=== PATIENT | male | born 1970 | race Caucasian/White ===

== ENCOUNTER 2022-12-24 10:23 | Emergency (ER) | payer MEDICAID ==
[2022-12-24 10:36] VITALS: BP 173/105
[2022-12-24] MEDS ORDERED: KETOROLAC 60 MG/2 ML VIAL IM STA (11:25)
--- NOTE | 2022-12-24 11:41 | ED Physician Documentation ---
History of Present Illness - Stated complaint Stated Complaint: FOOT PX/RTARM PX - Chief complaint Chief Complaint: General - History obtained from History obtained from: Patient - History of Present Illness Pain level max: 6 Pain level now: 5 - Additonal information Additional information: Patient is a 52-year-old male who presents to the emergency department complaint of bilateral foot pain ongoing for the past several months. Feels like [id number] sensation. He states he has a history of diabetes but stopped taking his diabetic meds a few months ago. He is from [place] and moved here less than 2 days ago. He states he is also having pain in the right shoulder, worse with movement, better with rest. No fevers. No chills. Denies any trauma. Has not taken anything for pain at home. Review of Systems Constitutional: denies: Fever, Chills GI: denies: Nausea, Vomiting, Diarrhea Skin: denies: Rash Musculoskeletal: denies: Neck pain, Back pain PD PAST MEDICAL HISTORY - Past Medical History Past Medical History: Yes Endocrine/Autoimmune: Type 2 diabetes - Present Medications Home Medications: Ambulatory Orders Medication Instructions Recorded Confirmed Gabapentin [Neurontin] 300 mg PO TID #90 cap 12/24/22 Meloxicam [Mobic] 7.5 mg PO BID PRN #20 tablet 12/24/22 - Allergies Allergies/Adverse Reactions: Allergies Allergy/AdvReac Type Severity Reaction Status Date / Time amoxicillin Allergy Hives Verified 12/24/22 10:36 cephalexin [From Keflex] Allergy Hives Verified 12/24/22 10:35 erythromycin base Allergy Hives Verified 12/24/22 10:36 - Living Situation Living Arrangement: reports: At home - Social History Does the pt have substance abuse?: No - Family History Family history: reports: Non contributory PD ED PE NORMAL - Vitals Vital signs reviewed: Yes - General General: Alert and oriented X 3, No acute distress - HEENT HEENT: PERRL, Moist mucous membranes - Neck Neck: Supple, no meningeal sign - Cardiac Cardiac: RRR, Strong equal pulses - Respiratory Respiratory: No respiratory distress, Clear bilaterally - Abdomen Abdomen: Soft, Non tender, Non distended - Derm Derm: Warm and dry - Extremities Extremities: Other (R shoulder - Mild tender to palpation posterior aspect of the glenohumeral joint. Full range of motion, but does have increased pain with external rotation. NVI. o/w normal exam) - Neuro Neuro: Alert and oriented X 3 - Psych Psych: Normal mood, Normal affect - Free text exam Free text exam: Mild decrease sensation over the bilateral feet, mainly in the tips of the toes, there is increased pain over the dorsum of the bilateral feet. No swelling. No skin changes. No wounds. Results - Vitals Vitals: Vital Signs - 24 hr 12/24/22 10:31 Temperature 36.2 C L Heart Rate 84 Respiratory 20 Rate Blood Pressure 173/105 H O2 Saturation 98 Oxygen O2 Source Room air - Labs Labs: Laboratory Tests 12/24/22 12/24/22 12/24/22 10:58 11:39 11:39 WBC 10.4 RBC 4.99 Hgb 14.3 Hct 44.0 MCV 88.2 MCH 28.7 MCHC 32.5 RDW 14.0 Plt Count 263 MPV 10.2 Neut # (Auto) 6.6 Lymph # (Auto) 2.5 [place] # (Auto) 0.7 Eos # (Auto) 0.4 Baso # (Auto) 0.1 Absolute Nucleated RBC 0.00 Nucleated RBC % 0.0 Sodium 138 Potassium 4.0 Chloride 105 Carbon Dioxide 27 Anion Gap 6.0 BUN 16 Creatinine 0.7 Estimated GFR (MDRD) 119 Glucose 119 H POC Whole Bld Glucose 127 H Estimat Average Glucose Hemoglobin A1c % Calcium 8.5 12/24/22 11:39 WBC RBC Hgb Hct MCV MCH MCHC RDW Plt Count MPV Neut # (Auto) Lymph # (Auto) [place] # (Auto) Eos # (Auto) Baso # (Auto) Absolute Nucleated RBC Nucleated RBC % Sodium Potassium Chloride Carbon Dioxide Anion Gap BUN Creatinine Estimated GFR (MDRD) Glucose POC Whole Bld Glucose Estimat Average Glucose 111 H Hemoglobin A1c % 5.5 Calcium - Rads (name of study) R shoulder xray Relevant Findings:: Final report received, See rad report PD Medical Decision Making - ED course Complexity details: reviewed results, re-evaluated patient, considered differential, d/w patient ED course: There is some arthritis in the right shoulder on x-ray, exam is more consistent with rotator cuff inflammation/tear. Placed in a sling for comfort. His description of the paresthesias in the feet is consistent with neuropathy and his history of diabetes. His A1c is 5.5 here today. We will not restart diabetes medications today. We will place him on gabapentin to see if this helps the neuropathy. Recommend that he follow-up closely with a local PCP. No evidence of infection. No evidence of DVT. No evidence of fracture. No wounds on the feet. Patient counseled regarding signs and symptoms for which I believe and urgent re-evaluation would be necessary. Patient with good understanding of and agreement to plan and is comfortable going home at this time This document was made in part using voice recognition software. While efforts are made to proofread this document, sound alike and grammatical errors may occur. Departure - Departure Disposition: Home, Self Care Clinical Impression: Rotator cuff tendonitis Qualifiers: Laterality: right Qualified Code(s): M75.81 - Other shoulder lesions, right shoulder Diabetic neuropathy Qualifiers: Diabetes mellitus type: type 2 Diabetes mellitus complication detail: diabetic polyneuropathy Qualified Code(s): E11.42 - Type 2 diabetes mellitus with diabetic polyneuropathy Condition: Good Instructions: ED Neuropathy Peripheral, ED Tendinitis Rotator Cuff Follow-Up: your,doctor in 1 week [Other] [facility] [place] [Provider Group] [facility] [place] [Provider Group] Primary/Walk In [place] [Provider Group] Walk In [facility] [Provider Group] Prescriptions: Meloxicam [Mobic] 7.5 mg PO BID PRN #20 tablet PRN Reason: Pain Gabapentin [Neurontin] 300 mg PO TID #90 cap Comments: Please follow up with your doctor for further care. Your x-ray shows a mild amount of arthritis. You appear to have inflammation in the posterior aspect of your rotator cuff, there could be a small tear here, you should follow-up with your primary care provider for further evaluation. The pins and needle sensation in your feet could be consistent with diabetic neuropathy, please follow-up with your primary care provider for this as well. We will try you on gabapentin to see if this helps your symptoms. Your prescriptions were sent to [facility] in [place]. Discharge Date/Time: 12/24/22 12:58
[2022-12-24 11:44] LABS: BASOPHILS # (AUTO) 0.1 10^3/uL (0.0-0.1); BASOPHILS % (AUTO) 0.9 %; EOSINOPHILS # (AUTO) 0.4 10^3/uL (0.0-0.7); EOSINOPHILS % (AUTO) 4.1 %; HGB - HEMOGLOBIN 14.3 g/dL (14.0-18.0); LYMPHOCYTES # (AUTO) 2.5 10^3/uL (1.5-3.5); LYMPHOCYTES % (AUTO) 24.1 %; MEAN CORPUSCULAR HEMOGLOBIN 28.7 pg (27.0-31.0); MEAN CORPUSCULAR HGB CONC 32.5 g/dL (32.0-36.0); MEAN CORPUSCULAR VOLUME 88.2 fL (80.0-94.0); MEAN PLATELET VOLUME 10.2 fL (7.4-11.4); MONOCYTES # (AUTO) 0.7 10^3/uL (0.0-1.0); NEUTROPHILS # (AUTO) 6.6 10^3/uL (1.5-6.6); NEUTROPHILS % (AUTO) 62.9 %; PLT - PLATELET COUNT 263 10^3/uL (130-450); RED BLOOD COUNT 4.99 10^6/uL (4.70-6.10); WHITE BLOOD COUNT 10.4 x10^3/uL (4.8-10.8)
[2022-12-24 11:53] LABS: CALCIUM 8.5 mg/dL (8.5-10.3); CREATININE 0.7 mg/dL (0.6-1.2)
--- NOTE | 2022-12-24 11:53 | XRAY Report ---
PROCEDURE: Shoulder 3 View RT INDICATIONS: shoulder pain, no known injury TECHNIQUE: 3 views of the shoulder were acquired. COMPARISON: None. FINDINGS: Bones: No fractures or dislocations. No suspicious bony lesions. Visualized ribs appear intact. Glenohumeral and acromioclavicular joint space narrowing with associated osteophytosis. Soft tissues: No suspicious soft tissue calcifications. IMPRESSION: Mild glenohumeral and acromioclavicular osteoarthritis. Reviewed by: Max Brown on 12/24/2022 11:51 AM PDT Approved by: Max Brown on 12/24/2022 11:51 AM PDT Station ID: [id number]
[2022-12-24 12:27] LABS: ESTIMATED AVERAGE GLUCOSE 111 mg/dL (70-100); HEMOGLOBIN A1c% 5.5 % (4.27-6.07)
== END 2022-12-24 12:58 | disposition home or self-care (01) ==
LOC: ED 10:23
DX: M75.81 Other shoulder lesions, right shoulder (principal); E11.42 Type 2 diabetes mellitus with diabetic polyneuropathy
CPT/HCPCS: 36415; 80048; 83036; 85025; 96372; 99283